=== PATIENT | female | born 1975 | race Hispanic/Latino ===

== ENCOUNTER 2017-06-08 07:55 | Outpatient (CLI) | payer OTHER ==
--- NOTE | 2017-06-08 09:39 | MMO ---
BILATERAL SCREENING MAMMOGRAM: INDICATION: Screening. COMPARISON: Mammograms in 2017 and 2016. FINDINGS: Bilateral screening CC and MLO mammograms were performed with computer-aided detection. There are sc attered fibroglandular densities. New from the comparison examination is an asymmetry posterior dept h left breast medial seen on the CC only. No other suspicious mass, architectural distortion, or microcalcifications. IMPRESSION: BI-RADS 0: Incomplete - Need additional imaging evaluation and/or prior mammograms for comparison. New asymmetry left breast posterior depth middle left breast requires additional evaluation. Sp ot compression and ultrasound if deemed necessary is recommended. POS: JULES
== END 2017-06-08 07:56 | disposition home or self-care (01) ==
LOC: SCSMAMMO 07:55
PROVIDERS: ATTEND Family Medicine
DX: Z12.31 Encounter for screening mammogram for malignant neoplasm of breast (principal)
CPT/HCPCS: 77067

== ENCOUNTER 2017-06-17 08:15 | Outpatient (CLI) | payer OTHER | END 2017-06-17 08:16 | disposition home or self-care (01) | LOC: BICMAMMO 08:15 | PROVIDERS: ATTEND Family Medicine | DX: R92.2 Inconclusive mammogram (principal) | CPT/HCPCS: G0279 ==

== ENCOUNTER 2018-07-03 08:04 | Outpatient (CLI) | payer OTHER ==
--- NOTE | 2018-07-19 15:49 | MMO ---
Bilateral MAMMO Bilat Screen [facility]. CLINICAL HISTORY: Patient is 43 years old and is seen for screening. The patient has no family history of breast cancer. The patient has no personal history of cancer. VIEWS: The views performed were: bilateral craniocaudal and bilateral mediolateral oblique. FILMS COMPARED: The present examination has been compared to prior imaging studies performed at [facility] on 06/04/2015, 06/15/2016 and 06/08/2017, and at [facility] on 06/17/2017. This study has been interpreted with the assistance of computer-aided detection. MAMMOGRAM FINDINGS: The breasts are heterogeneously dense, which could obscure a lesion on mammography. There are no suspicious masses, suspicious calcifications, or new areas of architectural distortion. IMPRESSION: THERE IS NO MAMMOGRAPHIC EVIDENCE OF MALIGNANCY. A ROUTINE FOLLOW-UP MAMMOGRAM IN 1 YEAR IS RECOMMENDED. ACR BI-RADS Category 1 - Negative MAMMOGRAPHY NOTE: 1. A negative mammogram report should not delay a biopsy if a dominant of clinically suspicious mass is present. 2. Approximately 10% to 15% of breast cancers are not detected by mammography. 3. Adenosis and dense breasts may obscure an underlying neoplasm.
== END 2018-07-03 08:05 | disposition home or self-care (01) ==
LOC: SCSMAMMO 08:04
PROVIDERS: ATTEND Family Medicine
DX: Z12.31 Encounter for screening mammogram for malignant neoplasm of breast (principal)
CPT/HCPCS: 77067